=== PATIENT | female | born 1970 | race Caucasian/White ===

== ENCOUNTER 2017-05-01 15:50 | Outpatient (CLI) | payer OTHER ==
--- NOTE | 2017-05-02 09:54 | XRAY Report ---
COMPLETE LUMBAR SPINE: 05/01/2017 CLINICAL INDICATION: Left-sided pain. FINDINGS: AP, lateral, oblique, coned-down views of the lumbar spine demonstrate degenerative disk d isease, worst at L3-4. There is no evidence of acute fracture. Alignment is normal. The bowel gas pattern is unremarkable. IMPRESSION: DEGENERATIVE CHANGES, WORST AT L3-4. NO EVIDENCE OF ACUTE FRACTURE. JOB #: [id number] EXT JOB #:[id number]
--- NOTE | 2017-05-02 13:30 | XRAY Report ---
COMPLETE CERVICAL SPINE: 05/01/2017 CLINICAL INDICATION: Cervical radiculopathy. FINDINGS: AP, lateral, oblique, odontoid views of the cervical spine demonstrate degenerative disk a nd facet disease. Disk space narrowing is worst at C5-6. There is bilateral osseous neural foramina l narrowing, worst at C5-6. There is no evidence of acute fracture. There is reversal of the normal cervical lordosis. IMPRESSION: DEGENERATIVE DISK AND FACET DISEASE, WITH BILATERAL OSSEOUS NEURAL FORAMINAL NARROWING. JOB #: [id number] EXT JOB #:[id number]
== END 2017-05-01 15:51 | disposition home or self-care (01) ==
LOC: DI 15:50
PROVIDERS: ATTEND Family Medicine
DX: M50.30 Other cervical disc degeneration, unspecified cervical region (principal); M47.892 Other spondylosis, cervical region; M51.36 Other intervertebral disc degeneration, lumbar region
CPT/HCPCS: 72050; 72110

== ENCOUNTER 2017-10-29 14:51 | Outpatient (CLI) | payer OTHER ==
--- NOTE | 2017-10-30 13:10 | Mammography Report ---
DIGITAL SCREENING MAMMOGRAM: 10/29/2017 CLINICAL INDICATION: A 47-year-old for baseline. TECHNIQUE: Routine CC and MLO projections were obtained of the breasts. FINDINGS: The breasts demonstrate scattered fibroglandular densities bilaterally. Punctate, typically benign calcifications are present. No suspicious masses, clustered microcalcifications, or regions of architectural distortion are identified. IMPRESSION: BENIGN FINDINGS. RECOMMENDATION: Routine annual screening unless otherwise clinically indicated. BIRADS CATEGORY 2 - BENIGN FINDINGS. STANDARD QUALIFYING STATEMENTS: 1. This examination was reviewed with the aid of Computer-Aided Detection (CAD). 2. A negative or benign imaging report should not delay biopsy if clinically suspicious findings are present. Consider surgical consultation if warranted. More than 5% of cancers are not identified by imaging. 3. Dense breasts may obscure an underlying neoplasm. TD: 10/30/2017 13:09
== END 2017-10-29 14:52 | disposition home or self-care (01) ==
LOC: DI.S 14:51
PROVIDERS: ATTEND Physician Assistant
DX: Z12.31 Encounter for screening mammogram for malignant neoplasm of breast (principal)
CPT/HCPCS: 77067

== ENCOUNTER 2019-09-27 11:09 | Emergency (ER) | payer OTHER ==
--- NOTE | 2019-09-27 13:13 | ED Physician Documentation ---
PD HPI URI - Stated complaint Stated Complaint: FLU LIKE SYMPTOMS - Chief complaint Chief Complaint: Resp - History obtained from History obtained from: Patient - History of Present Illness Timing - onset: How many days ago (few) Timing duration: Days (few) Timing details: Abrupt onset, Still present Associated symptoms: Fever, Chills, Nasal congestion, Sore throat, Dry cough. No: Chest pain, Dyspnea Contributing factors: No: Sick contact, Travel, Immunocompromised Similar symptoms before: Has not had sx before Recently seen: Not recently seen Review of Systems Constitutional: reports: Fever, Chills, Myalgias Nose: reports: Rhinorrhea / runny nose, Congestion Throat: reports: Sore throat Respiratory: reports: Cough GI: denies: Vomiting, Diarrhea Neurologic: denies: Altered mental status, Headache PD PAST MEDICAL HISTORY - Past Medical History Past Medical History: Yes Endocrine/Autoimmune: Type 2 diabetes GI: GERD - Past Surgical History Past Surgical History: Yes General: Cholecystectomy HEENT: Tonsil/Adenoidectomy - Present Medications Home Medications: Ambulatory Orders Medication Instructions Recorded Confirmed Hydrocodone/Acetaminophen [[place] 1 each PO Q6H PRN #30 tablet 12/22/14 7.5-325 Tablet] Naproxen 500 mg PO BID #20 tablet.dr 12/22/14 methocarbamoL [Robaxin] 500 mg PO Q6H PRN #40 tablet 12/22/14 Albuterol Sulfate [Albuterol 2 puffs IH QID #1 hfa.aer.ad 09/27/19 Sulfate Hfa] Benzonatate [Tessalon Perle] 100 - 200 mg PO TID PRN #30 capsule 09/27/19 dexAMETHasone [Decadron] 4 mg PO DAILY #5 tablet 09/27/19 guaiFENesin/CODEINE [Robitussin AC] 10 ml PO Q6H PRN #240 ml 09/27/19 - Allergies Allergies/Adverse Reactions: Allergies Allergy/AdvReac Type Severity Reaction Status Date / Time meperidine HCl * Allergy Nausea Verified 12/22/14 13:08 [From Demerol] morphine Allergy Nausea Verified 12/22/14 13:08 Sulfa (Sulfonamide AdvReac Edema Verified 12/22/14 13:08 Antibiotics) - Social History Does the pt smoke?: No Smoking Status: Never smoker Does the pt drink ETOH?: No Does the pt have substance abuse?: No - Immunizations Immunizations are current?: Yes - POLST Patient has POLST: No PD ED PE NORMAL - Vitals Vital signs reviewed: Yes - General General: Alert and oriented X 3, No acute distress, Well developed/nourished - HEENT HEENT: Ears normal, Pharynx benign - Neck Neck: Supple, no meningeal sign, No adenopathy - Cardiac Cardiac: RRR, No murmur - Respiratory Respiratory: Clear bilaterally - Derm Derm: Normal color, Warm and dry - Neuro Neuro: Alert and oriented X 3, No motor deficit, Normal speech Results - Vitals Vitals: Oxygen O2 Source Room air - Labs Labs: Laboratory Tests 09/27/19 11:27 Influenza A (Rapid) Negative Influenza B (Rapid) Negative PD MEDICAL DECISION MAKING - ED course Complexity details: considered differential (No leg symptoms with negative flu test. Does not sound bacterial. Will treat with symptom medications), d/w patient Departure - Departure Disposition: 01 Home, Self Care Clinical Impression: Flu-like symptoms Condition: Stable Record reviewed to determine appropriate education?: Yes Instructions: ED Upper Resp Infec No Abx Tx Prescriptions: Albuterol Sulfate [Albuterol Sulfate Hfa] 2 puffs IH QID #1 hfa.aer.ad Benzonatate [Tessalon Perle] 100 - 200 mg PO TID PRN #30 capsule PRN Reason: Cough dexAMETHasone [Decadron] 4 mg PO DAILY #5 tablet guaiFENesin/CODEINE [Robitussin AC] 10 ml PO Q6H PRN #240 ml PRN Reason: Cough Comments: Stay well-hydrated. Tylenol or ibuprofen or both for fevers and aches. Use albuterol inhaler 2 puffs 4 times a day for the next week to 10 days. Decadron steroid for inflammation of the airways and generally to decrease symptoms. Add benzonatate if needed for cough and can also add codeine cough medicine if needed. Off work presumably a few days due to the acute illness. Recheck if not improving well over the next several days and return sooner if worsening. Forms: Activity restrictions Discharge Date/Time: 09/27/19 14:50
[2019-09-27] MEDS ORDERED: CHERRY SYRUP 10 ML UDC PO ONE (13:37)
[2019-09-27] MEDS ORDERED: BENZONATATE 100 MG CAPSULE PO STA (13:37)
[2019-09-27] MEDS ORDERED: DEXAMETHASONE 10 MG/ML VIAL PO STA (13:37)
[2019-09-27] MEDS ORDERED: ALBUTEROL NEB 2.5 MG/3 ML INH STA (13:37)
[2019-09-27] MEDS: ACETAMINOPHEN 500 MG TABLET PO STA ×2 (13:50→13:56)
[2019-09-27 14:32] VITALS: BP 126/78
== END 2019-09-27 14:50 | disposition home or self-care (01) ==
LOC: ED 11:09
DX: R50.9 Fever, unspecified (principal); J34.89 Other specified disorders of nose and nasal sinuses; R05 Cough; M79.10 Myalgia, unspecified site; E11.9 Type 2 diabetes mellitus without complications
CPT/HCPCS: 87275; 87276; 94640; 99283; A9270

== ENCOUNTER 2020-02-13 16:54 | Emergency (ER) | payer OTHER ==
[2020-02-13] MEDS ORDERED: HYDROcod/ACETAM 5/325 MG TABLET PO STA (17:11)
[2020-02-13] MEDS ORDERED: cephALEXin 250 MG CAPSULE PO STA (17:11)
--- NOTE | 2020-02-13 17:13 | ED Physician Documentation ---
History of Present Illness - Stated complaint Stated Complaint: MOUTH PX - Chief complaint Chief Complaint: Heent - History obtained from History obtained from: Patient - History of Present Illness Timing: How many days ago (3) Pain level max: 7 Pain level now: 5 - Additonal information Additional information: R upper tooth pain x 3 days. Worse with eating and drinking. Better with rest. no fever. no facial swelling. has a dentist appointment in 3 days. Review of Systems Constitutional: denies: Fever, Chills Respiratory: denies: Cough GI: denies: Vomiting, Diarrhea Skin: denies: Rash Musculoskeletal: denies: Neck pain, Back pain Neurologic: denies: Headache PD PAST MEDICAL HISTORY - Past Medical History Past Medical History: Yes Endocrine/Autoimmune: Type 2 diabetes GI: GERD - Past Surgical History Past Surgical History: Yes General: Cholecystectomy HEENT: Tonsil/Adenoidectomy - Present Medications Home Medications: Ambulatory Orders Medication Instructions Recorded Confirmed Hydrocodone/Acetaminophen [[place] 1 each PO Q6H PRN #30 tablet 12/22/14 7.5-325 Tablet] Naproxen 500 mg PO BID #20 tablet.dr 12/22/14 methocarbamoL [Robaxin] 500 mg PO Q6H PRN #40 tablet 12/22/14 Albuterol Sulfate [Albuterol 2 puffs IH QID #1 hfa.aer.ad 09/27/19 Sulfate Hfa] Benzonatate [Tessalon Perle] 100 - 200 mg PO TID PRN #30 capsule 09/27/19 dexAMETHasone [Decadron] 4 mg PO DAILY #5 tablet 09/27/19 guaiFENesin/CODEINE [Robitussin AC] 10 ml PO Q6H PRN #240 ml 09/27/19 Cephalexin [Keflex] 500 mg PO Q6H #40 capsule 02/13/20 Hydrocodone/Acetaminophen 1 - 2 each PO Q6H PRN #10 tablet 02/13/20 [Hydrocodon-Acetaminophen 5-325] - Allergies Allergies/Adverse Reactions: Allergies Allergy/AdvReac Type Severity Reaction Status Date / Time meperidine HCl * Allergy Nausea Verified 02/13/20 16:58 [From Demerol] morphine Allergy Nausea Verified 02/13/20 16:58 Sulfa (Sulfonamide AdvReac Edema Verified 02/13/20 16:58 Antibiotics) - Social History Does the pt smoke?: No Smoking Status: Never smoker Does the pt drink ETOH?: No Does the pt have substance abuse?: No - Immunizations Immunizations are current?: Yes - POLST Patient has POLST: No PD ED PE NORMAL - Vitals Vital signs reviewed: Yes - General General: Alert and oriented X 3, No acute distress - HEENT HEENT: Moist mucous membranes, Other (R upper molar tenderness. no gingival or facial swelling. no abscess. ) - Neck Neck: Supple, no meningeal sign - Derm Derm: Warm and dry - Neuro Neuro: Alert and oriented X 3 Results - Vitals Vitals: Vital Signs - 24 hr 02/13/20 02/13/20 16:56 18:01 Temperature 35.9 C L Heart Rate 91 88 Respiratory 18 18 Rate Blood Pressure 154/88 H 145/93 H O2 Saturation 97 99 Oxygen O2 Source Room air PD MEDICAL DECISION MAKING - ED course Complexity details: considered differential, d/w patient, d/w family ED course: dental pain. no abscess. no swelling. We will place on antibiotics and have her follow-up with her dentist. Patient is well-appearing, nontoxic. Afebrile. Normal phonation. No trismus. Patient counseled regarding signs and symptoms for which I believe and urgent re-evaluation would be necessary. Patient with good understanding of and agreement to plan and is comfortable going home at this time This document was made in part using voice recognition software. While efforts are made to proofread this document, sound alike and grammatical errors may occur. Departure - Departure Disposition: Home, Self Care Clinical Impression: Pain due to dental caries Condition: Good Instructions: ED Tooth Pain Follow-Up: your,dentist on Sunday [Other] Prescriptions: Hydrocodone/Acetaminophen [Hydrocodon-Acetaminophen 5-325] 1 - 2 each PO Q6H PRN #10 tablet PRN Reason: pain Cephalexin [Keflex] 500 mg PO Q6H #40 capsule Comments: Take all antibiotics until gone. Return if you worsen. Follow-up with your dentist on Sunday for further care. Do not drink alcohol or drive while on narcotic pain medicine. Note that many narcotic pain relievers also contain tylenol/acetaminophen. Please ensure that your total dose of acetaminophen from all sources does not exceed 3 grams (3000mg) per day. You may constipated on this medication, take a stool softener such as "Colace" twice a day while you are on it. Also recommend a epat-syc-vcjranx laxative such as senna or MiraLAX any day that you do not have a bowel movement. If you received narcotic pain medication in the emergency department, do not drive or operate machinery for the next 24 hours. Discharge Date/Time: 02/13/20 17:43
[2020-02-13 18:03] VITALS: BP 145/93
== END 2020-02-13 17:43 | disposition home or self-care (01) ==
LOC: ED 16:54
DX: K02.9 Dental caries, unspecified (principal); E11.9 Type 2 diabetes mellitus without complications
CPT/HCPCS: 99282; 99284; A9270